=== PATIENT | female | born 1940 | race Caucasian/White ===

== ENCOUNTER 2020-08-09 08:46 | Emergency (ER) | payer MEDICARE ==
[~2020-08-09] VITALS: Ht 170.2 cm; Wt 79.4 kg
[~2020-08-09 08:46] MED LIST: OXYACE5T PO
[2020-08-09 09:45] LABS: Source, Urine Clean Catch
[2020-08-09 09:49] LABS: Appearance, Urine Cloudy (Clear); Bilirubin, Urine Neg (Neg); Blood, Urine 2+ (Neg); Color, Urine Yellow (P-Yellow); Glucose Qualitative, Urine 2+ (Neg); Ketones, Urine 1+ (Neg); Leukocyte Esterase, Urine 3+ (Neg); Nitrite, Urine Pos (Neg); Protein, Urine 3+ (Neg); Specific Gravity, Urine 1.015 (1.003-1.022); Urobilinogen, Urine NORM (Normal)
[2020-08-09 10:07] LABS: White Blood Cells, Urine TNTC /hpf (0-5)
[2020-08-09 10:08] LABS: Bacteria Many /hpf; Squamous Epithelial Cells Not Seen /hpf (Few)
[2020-08-09] MEDS ORDERED: Gyne-Lotrimin21 GM VAG (10:38)
[2020-08-09] MEDS ORDERED: KEFLEX500 MG PO (10:40)
[2020-08-09 11:17] LABS: Candida species (DNA Probe) Negative (NEGATIVE); G. vaginalis (DNA Probe) Negative (NEGATIVE); T. vaginalis (DNA Probe) Negative (NEGATIVE)
== END 2020-08-09 11:22 | disposition home or self-care (01) ==
LOC: ER 08:46
PROVIDERS: Physician Assistant
DX: N39.0 Urinary tract infection, site not specified (principal); B37.2 Candidiasis of skin and nail; N89.8 Other specified noninflammatory disorders of vagina; E11.9 Type 2 diabetes mellitus without complications
CPT/HCPCS: 81001; 87070; 87077; 87086; 87186; 87205; 87480; 87510; 87660; 99283

== ENCOUNTER → 2020-08-19 | Outpatient (CLI) | payer MEDICARE ==
[~2020-08-19] MED LIST changes: +Gyne-Lotrimin21 GM VAG; +KEFLEX500 MG PO
[2020-08-19 09:40] LABS: Source, Urine Clean Catch
[2020-08-19 10:25] LABS: Appearance, Urine Cloudy (Clear); Bilirubin, Urine Neg (Neg); Blood, Urine 2+ (Neg); Color, Urine Yellow (P-Yellow); Glucose Qualitative, Urine 2+ (Neg); Ketones, Urine Neg (Neg); Leukocyte Esterase, Urine 3+ (Neg); Nitrite, Urine Neg (Neg); Protein, Urine 2+ (Neg); Urobilinogen, Urine NORM (Normal)
[2020-08-19 10:35] LABS: White Blood Cells, Urine TNTC /hpf (0-5)
[2020-08-19 10:36] LABS: Bacteria Many /hpf; Squamous Epithelial Cells Few /hpf (Few)
== END | disposition home or self-care (01) ==
LOC: LAB SHORT 09:36 → OLS 09:36
PROVIDERS: Registered Nurse
DX: R41.0 Disorientation, unspecified (principal)
CPT/HCPCS: 81001; 87077; 87086; 87186

== ENCOUNTER → 2020-09-18 | Outpatient (CLI) | payer OTHER ==
[2020-09-18 09:31] LABS: Source, Urine Clean Catch
[2020-09-18 14:24] LABS: Appearance, Urine Clear (Clear); Bilirubin, Urine Neg (Neg); Blood, Urine 1+ (Neg); Color, Urine Yellow (P-Yellow); Glucose Qualitative, Urine 4+ (Neg); Ketones, Urine Neg (Neg); Leukocyte Esterase, Urine 2+ (Neg); Nitrite, Urine Neg (Neg); Protein, Urine 1+ (Neg); Specific Gravity, Urine 1.015 (1.003-1.022); Urobilinogen, Urine NORM (Normal)
[2020-09-18 14:54] LABS: Bacteria Few /hpf; Squamous Epithelial Cells Few /hpf (Few); White Blood Cells, Urine 25-50 /hpf (0-5)
== END | disposition home or self-care (01) ==
LOC: LAB SHORT 09:22 → LAB SRC 09:22
PROVIDERS: Registered Nurse
DX: R41.0 Disorientation, unspecified (principal)
CPT/HCPCS: 81001; 87086

== ENCOUNTER 2023-09-07 19:28 | Emergency (ER) | payer OTHER ==
[~2023-09-07] VITALS: Ht 165.1 cm; Wt 74.8 kg
[2023-09-07 19:45] VITALS: BP 108/62
[2023-09-07] MEDS ORDERED: Ultram50 MG PO (22:06)
== END 2023-09-07 22:18 | disposition home or self-care (01) ==
LOC: ER 19:28
DX: S42.202A Unspecified fracture of upper end of left humerus, initial encounter for closed fracture (principal); E11.9 Type 2 diabetes mellitus without complications; M19.90 Unspecified osteoarthritis, unspecified site; W18.39XA Other fall on same level, initial encounter; M25.512 Pain in left shoulder; S42.92XA Fracture of left shoulder girdle, part unspecified, initial encounter for closed fracture
CPT/HCPCS: 70450; 71045; 73030; 99282-25; A9270